=== PATIENT | female | born 1965 | race Caucasian/White ===

== ENCOUNTER → 2018-01-23 16:36 | Outpatient (CLI) | payer BC, SELFPAY ==
--- NOTE | 2018-01-23 16:40 | MM_ITS ---
MM Dig screening mamm BI w/CAD ORDERING PHYSICIAN : Juanpablo Heller PATIENT AGE: 52 years GENDER: Female COMPARISON: Outside studies June now available INDICATION: ITS.REASON: SCREENING no hormones no new complaints noncontributory family history TECHNIQUE: Standard CC and MLO images were obtained. R2 CAD reviewed. FINDINGS: Low-density breast bilaterally generalized fatty replacement... No dominant mass nor suspicious calcifications in either breast.. CAD Computer review highlights no areas of concern either RIGHT BREAST:No new areas of concern. . LEFT BREAST:No new areas of significant concern. There are few scattered benign appearing punctate calcifications at the left breast which were not present before but can be followed safely in one year IMPRESSION: Low-density breast. No areas of concern. Bilateral follow-up in one year BI-RADS Category: 1 Negative RECOMMENDED FOLLOW-UP: 1YR 1 YEAR FOLLOW-UP (A letter has been sent to the patient regarding results of the study.)
== END ==
PROVIDERS: PCP Internal Medicine; Visit Provider Internal Medicine
DX: Z12.31 Encounter for screening mammogram for malignant neoplasm of breast (principal)
CPT/HCPCS: 77067